=== PATIENT | female | born 1985 | race Caucasian/White ===

== ENCOUNTER 2023-11-21 18:20 | Emergency (ER) | payer BC ==
[2023-11-21] MEDS: Sucralfate Suspension 1 GM/10 ML Cup PO ONE (20:27)
== END 2023-11-21 20:29 ==
LOC: JD.ED 18:20
DX: K21.9 Gastro-esophageal reflux disease without esophagitis (principal); R09.A2 Foreign body sensation, throat; F17.210 Nicotine dependence, cigarettes, uncomplicated; Z86.16 Personal history of COVID-19; Z79.899 Other long term (current) drug therapy
CPT/HCPCS: 99282; A9270; 99283